=== PATIENT | male | born 1990 | race Caucasian/White ===

== ENCOUNTER 2016-08-11 11:14 | Emergency (ER) | payer OTHER ==
[~2016-08-11] VITALS: Ht 182.9 cm; Wt 68.0 kg
[2016-08-11] MEDS ORDERED: NAPROXEN 250 MG TAB PO ONE (13:45)
--- NOTE | 2016-08-11 14:34 | REP ---
RIGHT RIB SERIES: Four views of the right ribs are performed and demonstrate no fracture or bone lesion. An accompanying view of the chest demonstrates no acute infiltrate in either lung. There is no pneumothorax. The heart is normal in size. IMPRESSION: Negative right rib series. Signed by Sudheer Appiah MD 08/11/2016 04:41 P
[2016-08-11] MEDS ORDERED: MOBI7.5T10 PO (15:14)
[2016-08-11] MEDS ORDERED: ZANA4TAB PO (15:15)
[2016-08-11 15:48] VITALS: BP 132/81
== END 2016-08-11 15:50 | disposition home or self-care (01) ==
LOC: M ED 13:47
DX: S29.9XXA Unspecified injury of thorax, initial encounter (principal); W01.0XXA Fall on same level from slipping, tripping and stumbling without subsequent striking against object, initial encounter; Y92.89 Other specified places as the place of occurrence of the external cause; Y93.89 Activity, other specified; Y99.8 Other external cause status; F17.210 Nicotine dependence, cigarettes, uncomplicated